=== PATIENT | male | born 1980 | race Caucasian/White ===

== ENCOUNTER 2018-03-30 01:08 | Emergency (ER) | payer MEDICAID ==
[~2018-03-30] VITALS: Ht 177.8 cm; Wt 145.1 kg
[2018-03-30 01:34] VITALS: BP 129/82
== END 2018-03-30 04:46 | disposition left against medical advice (07) ==
LOC: ER 01:08
DX: M54.9 Dorsalgia, unspecified (principal); M25.511 Pain in right shoulder; Z53.21 Procedure and treatment not carried out due to patient leaving prior to being seen by health care provider; X50.0XXA Overexertion from strenuous movement or load, initial encounter; Y93.89 Activity, other specified; Y92.812 Truck as the place of occurrence of the external cause; Y99.8 Other external cause status